=== PATIENT | male | born 1970 | race Caucasian/White ===

== ENCOUNTER → 2016-03-30 | Outpatient (CLI) | payer OTHER ==
[~2016-03-30] MED LIST: GADOBUTROL 10 ML VIAL IVP ONE
--- NOTE | 2016-03-30 14:07 | MR ---
MRI Cardiac, Without and With Contrast at 0757 hours History: Premature ventricular depolarization. VRN888 code I4 9.3. History of several cardiac ablatio ns. Technique: MRI was performed of the heart using a 1.5 [place] MRI system. Long and short-axis images we re obtained of the heart with FIESTA, double inversion-recovery, and triple inversion-recovery images . Multiphase postcontrast imaging was performed after 10 mL of Gadavist IV contrast. Delayed postcont rast imaging was also obtained in both planes. Findings: Heart size and cardiac chambers are normal in size. Left and right ventricular myocardial w alls are normal in thickness and signal intensity. No evidence for delayed myocardial enhancement. No focal wall motion abnormalities are visualized. Tricuspid appearance to the aortic valve. No evidenc e for aneurysm of the thoracic aorta visualized. No evidence for pericardial effusion. Impression: Normal MRI cardiac without and with contrast. No evidence for arrhythmogenic right ventri cular dysplasia or cardiomyopathy.
== END ==
LOC: FIMAGING 07:25
PROVIDERS: ATTEND Internal Medicine Cardiovascular Disease
DX: I49.3 Ventricular premature depolarization (principal)
CPT/HCPCS: A9585